=== PATIENT | female | born 1995 | race Caucasian/White ===

== ENCOUNTER → 2016-11-04 | Outpatient (CLI) | payer OTHER ==
--- NOTE | 2016-11-04 15:01 | MRI ---
STUDY: MRA OF THE BRAIN HISTORY: Migraine with aura. Comparison: None. Technique: 3D [id number] imaging of the intracranial circulation was performed. Findings: 3D [id number] MRA examination shows normal flow related enhancement in the major intracranial ar teries. There is no evidence of hemodynamically significant stenosis or aneurysm. There are bilatera l posterior communicating arteries. The vertebral arteries are incompletely imaged. IMPRESSION: 1. Normal MRA of the brain. Reported By:
--- NOTE | 2016-11-04 16:00 | MRI ---
STUDY: MRI OF THE BRAIN WITHOUT GADOLINIUM History: Migraine with aura. Comparison: None. Technique: Multiplanar multi-sequence MRI of the brain was obtained utilizing standard departmental protocol. Sagittal and axial T1, axial T2, FLAIR, diffusion (DWI/ADC) images through the brain were performed. Findings: The sulci, cisterns, and ventricles are age appropriate. There is no evidence of acute ter ritorial infarction, hemorrhage, mass, mass effect or midline shift. There are no abnormal intra-axi al or extra-axial fluid collections. The major intracranial vascular flow voids are intact. IMPRESSION: 1. No evidence of acute intracranial abnormality. Reported By:
== END ==
LOC: RAD 13:32
PROVIDERS: ATTEND Nurse Practitioner
DX: G43.109 Migraine with aura, not intractable, without status migrainosus (principal)
CPT/HCPCS: 70544; 70551